=== PATIENT | female | born 1950 | race Caucasian/White ===

== ENCOUNTER 2018-04-16 08:44 | Outpatient (CLI) | payer MEDICARE | END 2018-04-16 08:45 | disposition home or self-care (01) | LOC: BICULT 08:44 | PROVIDERS: ATTEND Family Medicine | DX: K83.8 Other specified diseases of biliary tract (principal) | CPT/HCPCS: 76705 ==

== ENCOUNTER 2018-05-03 08:18 | Outpatient (CLI) | payer MEDICARE ==
[2018-05-03] MEDS ORDERED: Gadobenate Dimeglumine 529 MG/1 ML (20ML VIAL) ONE (09:50)
--- NOTE | 2018-05-03 11:02 | MRI ---
MRI OF THE ABDOMEN WITHOUT AND WITH CONTRAST MRCP: HISTORY: Enlargement of the common bile duct seen on prior ultrasound. COMPARISON: Gallbladder ultrasound 04/16/18. TECHNIQUE: Multiplanar, multisequence MR images were obtained of the abdomen without and with IV contrast. MRCP images were performed. FINDINGS: The common bile duct is enlarged measuring 11 mm. The common bile duct tapers abruptly to a normal c aliber in the pancreatic head at the ampule of Vater. The pancreatic duct is normal in caliber immed iately adjacent to the common bile duct. No mass is seen within the pancreatic head and no filling d efects are seen in the common bile duct. No significant central intrahepatic biliary dilatation is s een. The gallbladder shows no definite filling defects. There are foci of high T2 signal in the bilateral kidneys measuring up to 3.3 cm in size which repres ent cysts. The adrenal glands, spleen, and pancreas are unremarkable. No abdominal adenopathy is se en. No marrow signal abnormality is present. IMPRESSION: 1. There is enlargement of the common bile duct without significant intrahepatic biliary dilatation. No definite filling defect or mass is seen where the common bile duct tapers at the ampule of Vater . This may not be clinically significant. Correlate with LFTs. 2. Bilateral renal cysts. POS: [facility]
== END 2018-05-03 08:19 | disposition home or self-care (01) ==
LOC: MRI 08:18
PROVIDERS: ATTEND Surgery
DX: Q44.5 Other congenital malformations of bile ducts (principal); N28.1 Cyst of kidney, acquired; K83.8 Other specified diseases of biliary tract
CPT/HCPCS: 74183; A9579

== ENCOUNTER 2020-11-22 15:41 | Emergency (ER) | payer MEDICARE, SELFPAY ==
[2020-11-22] MEDS ORDERED: Lidocaine Viscous Sol 2% 15 ml UD Cup ONE (16:43)
[2020-11-22] MEDS ORDERED: Mag-Al 1200 mg/1200 mg/30 ML UDCUP ONE (16:43)
--- NOTE | 2020-11-22 17:01 | RAD ---
XR Chest 1 View Portable HISTORY: Chest pain, epigastric pain COMPARISON: 04/09/2016 FINDINGS: The heart size is normal. The aorta is tortuous. The lungs are well expanded without focal areas of consolidation, pneumothorax or pleural effusions. IMPRESSION: No radiographic evidence of acute cardiopulmonary process.
[2020-11-22 17:05] LABS: #Lymphocytes 0.4 thou/uL (1.20-3.40); #Monocytes 0.1 thou/uL (0.11-0.59); #Neutrophils 6.7 thou/uL (1.40-6.50); %Basophils 0.1 % (0.0-1.0); %Eosinophils 0.1 % (0.0-10.0); %Lymphocytes 5.6 % (21.0-51.0); %Monocytes 1.5 % (0.0-10.0); %Neutrophils 92.8 % (42.0-75.0); Hemoglobin 14.4 g/dL (12.0-16.0); Mean Corpuscular HGB CONC 33.3 g/dL (32.0-36.0); Mean Corpuscular Hemoglobin 33.2 pg (27.0-31.0); Mean Corpuscular Volume 99.8 fL (78.0-98.0); Mean Platelet Volume 8.2 fL (7.4-10.4); Platelet Count 286 thou/uL (130-400); RBC Distribution Width 12.6 % (11.5-14.5); Red Blood Cell (RBC) Count 4.34 mill/uL (4.20-5.40); White Blood Cell (WBC) Count 7.2 thou/uL (4.8-10.8)
[2020-11-22 17:25] LABS: ALT (SGPT) 31 U/L (8-55); AST (SGOT) 28 U/L (5-34); Albumin 4.1 g/dL (3.4-4.8); Alkaline Phosphatase 117 U/L (40-110); Anion Gap 18 mmol/L (10-20); BUN (Urea Nitrogen) 19 mg/dL (9.8-20.1); Bilirubin, Total 0.3 mg/dL (0.2-1.2); Calc. Creatinine Clearance 0 mL/min (70-130); Carbon Dioxide 26 mmol/L (23-31); Chloride 99 mmol/L (98-107); Globulin 2.6 g/dL (2.4-3.5); Glucose 160 mg/dL (83-110); Lipase 13 U/L (8-78); Potassium 4.1 mmol/L (3.5-5.1); Protein, Total 6.7 g/dL (6.0-8.3); Sodium 139 mmol/L (136-145)
--- NOTE | 2020-12-12 20:35 | EKG ---
Test Reason : Blood Pressure : / mmHG Vent. Rate : 063 BPM Atrial Rate : 063 BPM P-R Int : 094 ms QRS Dur : 068 ms QT Int : 514 ms P-R-T Axes : 043 046 026 degrees QTc Int : 525 ms Sinus rhythm with short ND Prolonged QT Abnormal ECG No change from 04/09/2016 Confirmed by LISA KELSEY, CHANI ([id number]), purchase request editor SAI ABBOTT ([id number]) on 12/12/2020 8:35:18 PM Referred By: Confirmed By:CHANI GONZALEZ MD
== END 2020-11-22 19:15 | disposition home or self-care (01) ==
LOC: ERS 15:41
DX: K29.00 Acute gastritis without bleeding (principal); F41.9 Anxiety disorder, unspecified; F32.9 Major depressive disorder, single episode, unspecified; Z79.899 Other long term (current) drug therapy
CPT/HCPCS: 36415; 71045; 80053; 83690; 84484; 85025; 93005